=== PATIENT | male | born 1945 | race Hispanic/Latino ===

== ENCOUNTER → 2020-10-04 | Outpatient (CLI) | payer MEDICARE, OTHER | END | disposition home or self-care (01) | LOC: RAH 08:56 | PROVIDERS: ATTEND Internal Medicine Cardiovascular Disease | DX: I25.10 Atherosclerotic heart disease of native coronary artery without angina pectoris (principal); R94.39 Abnormal result of other cardiovascular function study | CPT/HCPCS: 78452; 93017; 96374; A9500 ×2 ==

== ENCOUNTER → 2024-05-29 | Outpatient (CLI) | payer MEDICARE ==
[~2024-05-29] MED LIST: AMOX1TAB16 PO; ASPI-1197 PO; CARV3.1262 PO; EMPA10TA PO; INSU100C14 SQ; INSU3INS3 SQ; METF-445 PO; SACU1TAB PO; SIMV-43 PO; SPIR25TA6 PO; TORS20TA4 PO
[2024-05-29 12:22] LABS: CREATININE 1.4 mg/dL (0.5-1.3); MAGNESIUM 2.3 mg/dL (1.80-2.40); POTASSIUM 4.7 mmol/L (3.5-5.1)
== END | disposition home or self-care (01) ==
LOC: LAB 10:00
PROVIDERS: ATTEND Internal Medicine Cardiovascular Disease
DX: I50.22 Chronic systolic (congestive) heart failure (principal); I25.5 Ischemic cardiomyopathy
CPT/HCPCS: 36415; 80048; 83735; 83880

== ENCOUNTER 2024-06-27 11:09 | Day surgery (SDC) | payer MEDICARE ==
--- NOTE | 2024-06-23 11:18 | EKG ---
[facility] Test Date: 2024-06-23 Test Time: 12:08:07 Pat Name: KARIN LEE Department: [facility] Room: Gender: M Hall Supervisor: [id number] : 1945 Requested By: LE WHEELER Order Number: [id number] Reading MD: Janneth George Measurements Intervals [place] Rate: 106 P: 1 UT: 179 QRS: 86 QRSD: 147 T: 20 QT: 379 QTc: 503 Interpretive Statements Sinus tachycardia Probable left atrial enlargement Left ventricular hypertrophy Compared to ECG 05/18/2024 12:38:15 Left ventricular hypertrophy now present Left bundle-branch block no longer present Intraventricular conduction delay no longer present ST (T wave) deviation no longer present Electronically Signed On 06-23-2024 13:34:00 WEDDING COORDINATOR by Janneth George Please click the below link to view image of tracing.
[2024-06-23 11:19] VITALS: BP 107/74; PULSE 105; RESP 18; TEMP 97.2
[2024-06-23 11:33] LABS: INR 1.06 (0.85-1.15); PROTHROMBIN TIME 11.4 SEC (9.6-11.6)
[2024-06-23 11:38] LABS: ADD UA MICROSCOPIC YES; APPEARANCE,URINE CLEAR (CLEAR); BILIRUBIN,URINE NEGATIVE (NEGATIVE); COLOR,URINE YELLOW (YELLOW); GLUCOSE, URINE (UA) >=1000 mg/dL (NEGATIVE); KETONES,URINE NEGATIVE (NEGATIVE); LEUKOCYTE ESTERASE ,URINE NEGATIVE Leu/uL (NEGATIVE); NITRATE,URINE NEGATIVE (NEGATIVE); OCCULT BLOOD,URINE NEGATIVE (NEGATIVE); PROTEIN,URINE 30 mg/dL (NEGATIVE); UROBILINOGEN,URINE 0.2 mg/dL (0.2-1.0)
[2024-06-23 11:43] LABS: CREATININE 1.1 mg/dL (0.5-1.3); POTASSIUM 4.5 mmol/L (3.5-5.1)
[2024-06-23 11:48] LABS: BASOPHILS # (AUTO) 0.05 K/uL (0.00-0.20); BASOPHILS % (AUTO) 0.5 % (0.0-5.0); EOSINOPHILS # (AUTO) 0.15 K/uL (0.00-0.70); EOSINOPHILS % (AUTO) 1.6 % (0.0-8.0); HEMATOCRIT 44.2 % (42-54); IMMATURE GRANULOCYTE ABSOLUTE 0.01 K/uL (0-1); LYMPHOCYTES # (AUTO) 2.5 K/uL (1.0-4.8); LYMPHOCYTES % (AUTO) 26.6 % (21.0-51.0); MEAN CORPUSCULAR HEMOGLOBIN 30.7 pg (27.0-33.0); MEAN CORPUSCULAR HGB CONC 31.9 g/dL (32.0-36.0); MEAN CORPUSCULAR VOLUME 96.3 fL (79-99); MONOCYTES # (AUTO) 0.7 K/uL (0.1-1.0); MONOCYTES % (AUTO) 7.8 % (3.0-13.0); NEUTROPHILS # (AUTO) 5.9 K/uL (1.8-7.7); NEUTROPHILS % (AUTO) 63.4 % (40.0-77.0); PLATELET COUNT (AUTO) 189 K/uL (130-400); RED BLOOD CELL COUNT(AUTO) 4.59 MIL/uL (4.50-6.20); RED CELL DISTRIBUTION WIDTH 14.2 % (11.0-15.5); WHITE BLOOD COUNT (AUTO) 9.3 K/uL (4.8-10.8)
--- NOTE | 2024-06-23 12:07 | HMCIMG ---
CHEST 1VW REASON: PRE OP COMPARISON: None. FINDINGS: Single view of the chest was obtained. Lungs are clear. Mild cardiomegaly, unchanged. There is no pulmonary vascular congestion. Mediastinum and bony thorax appear unremarkable. IMPRESSION: 1. Mild cardiomegaly, unchanged, no acute finding.
[2024-06-23 12:20] LABS: B-TYPE NATRIURETIC PEPTIDE 2070 pg/mL (0-100)
[2024-06-23 12:40] LABS: BACTERIA,URINE RARE /HPF (None Seen); MUCUS,URINE RARE LPF (None Seen); RBC,URINE 0-1 /HPF (0-1); SQUAMOUS EPITHELIAL CELL,UR RARE /HPF (0-2); WBC,URINE 0-1 /HPF (0-1)
--- NOTE | 2024-06-26 15:14 | NUR ---
RE: LABS REPORTED BNP 2069 TO FILIBERTO RAMOS NP AND THAT PATIENT REPORTED HAVING A COUGH. PER FILIBERTO, REASSESS PATIENT IN AM IF HE IS NOT ABLE TO LAY FLATOR HAS SOB THEN NOTIFY DR WHEELER.
[~2024-06-27] VITALS: Ht 177.8 cm; Wt 88.5 kg
[2024-06-27] VITALS (8 sets, daily range): BP systolic 110–116; BP diastolic 72–85; PULSE 92–112; RESP 16–19; TEMP 97.3–98
[~2024-06-27 11:09] MED LIST changes: -AMOX1TAB16 PO; -ASPI-1197 PO; -CARV3.1262 PO; +CARV6.25 PO
--- NOTE | 2024-06-27 12:13 | NUR ---
Reported SOBUE, yellow phlegm and wheezes to right lung field to Dr. Dietz in mushroom laborer. 2V CXR completed. Sats 98% ora.
--- NOTE | 2024-06-27 12:44 | HMCIMG ---
CHEST 2VWS HISTORY: Preop COMPARISON: 06/23/2024 FINDINGS: Frontal and lateral projections of the chest were obtained. There is no acute pulmonary infiltrates or failure. The heart is borderline enlarged. Artery calcifications are seen. Prominent interstitial markings are seen Degenerative changes are seen of the thoracolumbar spine. IMPRESSION: 1. No acute pulmonary infiltrates.
[2024-06-27] MEDS ORDERED: BIVALIRUDIN 250 MG/VIAL IV ONE (14:58)
[2024-06-27] MEDS ORDERED: LIDOCAINE HCL 400MG/20ML VIAL ONE (14:58)
[2024-06-27] MEDS ORDERED: IOHEXOL 350 MG/ML 100ML INFUS..BTL IV ONE ×2 (14:59→15:06)
[2024-06-27] MEDS ORDERED: HEParin-NS 1,000 UNIT/500 ML 1,000 ML IV ONE (14:59)
[2024-06-27] MEDS ORDERED: HEParin 10,000 UNIT/10ML (1,000 UNIT/ML) VIAL ONE (14:59)
[2024-06-27] MEDS ORDERED: NITROGLYCERIN 50MG VIAL ONE (14:59)
[2024-06-27] MEDS ORDERED: IOHEXOL-350 50ML VIAL IV ONE (14:59)
[2024-06-27] MEDS ORDERED: FENTanyl CITRate PF 50 MCG/1 ML 2ML VIAL ONE (15:19)
[2024-06-27] MEDS ORDERED: MIDAZOLAM HCL 1 MG/ML 2ML VIAL ONE (15:19)
[2024-06-27] MEDS ORDERED: INSULIN humuLIN R 100 UNIT/ML 3ML SQ SCH (16:30)
[2024-06-27] MEDS ORDERED: DEXTROSE 50%-WATER 50 ML DISP.SYRIN IV PRN (16:30)
[2024-06-27] MEDS ORDERED: GLUCAGON 1MG KIT 1 MG ML IM PRN (16:30)
--- NOTE | 2024-06-27 16:35 | PRN ---
DATE OF PROCEDURE: 06/27/2024 PROCEDURE PERFORMED: RIGHT AND LEFT HEART CATHETERIZATION, LEFT VENTRICULOGRAM, LEFT AND RIGHT SELECTIVE CORONARY ANGIOGRAM SPEECH PATHOLOGIST ASSISTANT: INDICATION: PROCEDURE NOTE: After informed consent was obtained the patient was prepped and draped in the usual sterile fashion. A 7 F venous sheath with hemostatic valve was inserted into the right common femoral vein with micropuncture technique and ultrasound guidance. A 6 Algerian arterial sheath was inserted in the right femoral artery using micropuncture technique and ultrasound guidance with a front wall 1st pass puncture as well. This was performed after fluoroscopic identification of bony landmarks to facilitate a more accurate puncture of the right common femoral artery. The arterial and venous sheaths were aspirated and flushed. A 7 Algerian S tip Dallas-Ray catheter was then advanced using balloon floatation to the right heart with pressure measurements in the RA, RV, PA, and pulmonary capillary wedge positions. Cardiac output determinations were made. A 6 Algerian pigtail catheter was then advanced over a J-tipped guidewire to the ascending aorta and was prolapsed into the left ventricle. The catheter was aspirated and flushed and pressure measurements were obtained. Simultaneous pressure measurements of LVEDP and wedge pressure were obtained. A left ventriculogram was then performed in a 30 BANSAL projection. A pullback procedure was then performed, and this catheter was removed over a J-tipped guidewire. A 6F JL-4 was then advanced to the ascending aorta over a J-tipped guidewire, was aspirated and flushed, and was used for selective left coronary angiograms in multiple obliquities. A JR-4 was advanced in a similar fashion to the ascending aorta over a J-tipped guidewire and was used for selective right coronary angiograms in multiple obliquities with findings as outlined below. A right common femoral angiogram was performed to assess suitability for Perclose suture closure and the Perclose device was deployed in standard fashion. Perclose suture closure was successful without bleeding or hematoma. The patient tolerated the procedure well and was returned to the holding area in stable condition. FINDINGS: RIGHT HEART CATHETERIZATION: RA pressure was 18 mm of mercury on the A-wave, 14 mm of mercury on the V-wave, and mean RA pressure was 12 mm of mercury. RV pressure was 53/14 mm of mercury PA pressure was 53/20 mm of mercury with a mean PA pressure of 38 mm of mercury. Pulmonary capillary wedge pressure was 20 mm of mercury on the A-wave, 28 mm of mercury on the V-wave, and mean pulmonary capillary wedge pressure was 20 mm of mercury. Cardiac output was 3.65 liters/minute Cardiac index was 1.8 liters/minute per meter squared LEFT HEART HEMODYNAMICS: The patient's LVEDP was 17 mm of mercury prior to LV-gram in 19 mm of mercury after LV-gram. There was no aortic valve gradient on pullback. LEFT VENTRICULOGRAM: A left ventriculogram in a 30 degree BANSAL projection demonstrated severe global hypokinesis with an LVEF estimate of less than 20%. 2+ to 3+ mitral regurgitation. CORONARY ANGIOGRAM: LEFT MAIN: The left main was normal. LEFT ANTERIOR DESCENDING: The LAD had a 20% mid stenosis and a 20% stenosis in the mid to distal LAD. The diagonal branches were normal. LEFT CIRCUMFLEX: The left circumflex had a 20% mid stenosis prior to a large bifurcating posterolateral branch. RAMUS INTERMEDIATE BRANCH: There was a tiny normal ramus intermediate branch. RIGHT CORONARY ARTERY: The right coronary artery had a 20% mid stenosis and was otherwise normal. The PDA and posterolateral branches were normal. IMPRESSION: Nonischemic cardiomyopathy with LVEF of less than 20%. Low cardiac output state with cardiac index of 1.8 liters/min/m. Two to 3+ mitral regurgitation with large V-waves to 28 mm of mercury. Minor nonobstructive coronary artery disease with 20% mid and distal LAD stenoses, 20% mid left circumflex stenosis, and 20% mid RCA stenosis with otherwise normal coronaries. Pulmonary capillary wedge pressure of 20 mm of mercury consistent with adequate diuresis. RECOMMENDATION: Continue guideline directed medical therapy. COMPLICATIONS OF PROCEDURE: None, the patient tolerated the procedure well and was returned to his room in stable condition. HEMOSTASIS: Perclose suture closure was successful without bleeding or hematoma. ESTIMATED BLOOD LOSS: Less than 10 mL. CONTRAST TOTAL: 115 mL. LE WHEELER MD Jun 27, 2024 16:35
--- NOTE | 2024-06-27 18:54 | NUR ---
Full and complete discharge instructions given both verbally and in writing to Patient and . Instructed on Femoral precautions post Heart Catheterization. Site remains soft, with dressing clean and dry. No sign of bleeding, bruising or hematoma evident. Pedal pulses intact to BLE's. Pt denies c/o pain or sob. All questions answered. PIV removed with catheter tip intact. W/C to pov with Daughter.
== END 2024-06-27 19:26 | disposition home or self-care (01) ==
LOC: DAH 11:09
PROVIDERS: ATTEND Internal Medicine Cardiovascular Disease
DX: R94.39 Abnormal result of other cardiovascular function study (principal); I25.10 Atherosclerotic heart disease of native coronary artery without angina pectoris; I42.8 Other cardiomyopathies; I34.0 Nonrheumatic mitral (valve) insufficiency; I11.0 Hypertensive heart disease with heart failure; I50.9 Heart failure, unspecified; E11.9 Type 2 diabetes mellitus without complications; E78.5 Hyperlipidemia, unspecified; Z98.890 Other specified postprocedural states; Z87.891 Personal history of nicotine dependence; Z90.49 Acquired absence of other specified parts of digestive tract; Z98.49 Cataract extraction status, unspecified eye; Z83.3 Family history of diabetes mellitus; Z79.4 Long term (current) use of insulin; Z79.899 Other long term (current) drug therapy
CPT/HCPCS: 80048; 83880; 85025; 85610; 85730; 81001; 36415; 71045; 93005; 93460; 82948; 71046; C1894 ×3; C1769 ×2; C1760; Q9965; J3010; J3490 ×2; J2250; J1644; Q9967 ×2; A4215; A4222; A4221; A4663; A4216; A4606; A4223 ×3; 99156; 99157; J0583

== ENCOUNTER 2024-06-28 08:02 | Observation (INO) | payer MEDICARE ==
[~2024-06-28] VITALS: Ht 177.8 cm; Wt 87.5 kg
--- NOTE | 2024-06-28 08:23 | EKG ---
[facility] Test Date: 2024-06-28 Test Time: 08:08:04 Pat Name: KARIN LEE Department: [facility] Room: ED Gender: M Coo: [id number] : 1945 Requested By: BRETO DE Order Number: [id number] Reading MD: Hans Junior Measurements Intervals [place] Rate: 97 P: 48 [place]: 193 QRS: -79 QRSD: 148 T: 74 QT: 408 QTc: 520 Interpretive Statements Sinus rhythm Left bundle branch block Compared to ECG 06/23/2024 12:08:07 Left bundle-branch block now present Sinus tachycardia no longer present Left ventricular hypertrophy no longer present Electronically Signed On 06-28-2024 17:04:51 OWNER ORAL SURGEON by Hans Junior Please click the below link to view image of tracing.
[2024-06-28] MEDS: ASPIRIN 325MG TAB PO ONE (08:36)
--- NOTE | 2024-06-28 08:36 | ERN ---
ED Note History of Present Illness Stated Complaint: JONO QUEEN S/P HEART CATH Chief Complaint: Chest Pain Time Seen by : 08:28 Dictation: Patient is a 78-year-old male with a past medical history of congestive heart failure, diabetes type 2, hypertension, and hyperlipidemia who presents to the ED for shortness of breath. Patient was recently hospitalized a month ago for acute exacerbation of CHF and pneumonia but has since felt better started on new management for his CHF. Patient states he had a heart catheterization done yesterday and there was no blockage found. Patient denies any dizziness, headaches, or numbness and tingling. He does admit to some lightheadedness when getting up this morning. He has some discomfort at the site of CAD insertion on the right leg. Patient states he takes a baby aspirin occasionally but did not take one this morning. LVEF in May 2024 was <20%. Allergies: Coded Allergies: No Known Allergies (Verified Allergy, Unknown, 06/16/18) Home Meds Active Scripts Sacubitril/Valsartan (Entresto 24 mg-26 mg Tablet) 24 Mg-26 Mg Tablet, 0.5 TAB PO BID for 30 Days, #60 TAB 0 Refills Hold dose if Systolic blood pressure less than 90 Prov:SOTERO RAMOS SHEAR SCRAPMAN 05/26/24 Spironolactone (Spironolactone) 25 Mg Tablet, 1 TAB PO DAILY for 30 Days, #30 TAB 0 Refills Prov:LE WHEELER MD 05/25/24 Empagliflozin (Jardiance) 10 Mg Tablet, 1 TAB PO DAILY for 30 Days, #30 TAB 0 Refills Prov:LE WHEELER MD 05/25/24 Torsemide (Torsemide) 20 Mg Tablet, 1 TAB PO DAILY for 30 Days, #30 TAB 0 Refills Prov:LE WHEELER MD 05/25/24 Reported Medications Carvedilol (Carvedilol) 6.25 Mg Tablet, 6.25 MG PO BID, TAB 06/23/24 Insulin Glargine,Hum.rec.anlog (Lantus Solostar) 100 Unit/Ml (3 Ml) Insuln.pen, 45 UNIT SQ HS for 30 Days, #15 ML 0 Refills 05/18/24 Insulin Lispro (Humalog) 100 Unit/Ml Cartridge, 15 UNITS SQ ACHS, CARTRIDGE 05/18/24 Metformin HCl (Metformin HCl) 850 Mg Tablet, 1 TAB PO BID for 30 Days, #60 TAB 0 Refills 05/18/24 Simvastatin (Simvastatin) 20 Mg Tablet, 20 MG PO HS, TAB 05/18/24 Discontinued Scripts Aspirin (Aspirin) 81 Mg Tab.chew, 1 TAB PO DAILY for 30 Days, #90 TAB 0 Refills Prov:SOTERO RAMOS SHEAR SCRAPMAN 05/26/24 Amoxicillin/Potassium Clav (Amox Tr-K Clv 875-125 mg Tab) 875 Mg-125 Mg Tablet, 1 TAB PO BID for 10 Days, #20 TAB 0 Refills Prov:NEYDA CASTILLO SECURITY OPERATIONS ENGINEER 05/26/24 Carvedilol (Coreg) 3.125 Mg Tablet, 3.125 MG PO BID, #30 TAB Prov:LE WHEELER MD 05/25/24 Past Medical History Past Medical History: CAD, CHF, Diabetes-Type II, High Cholesterol, Hypertension Surgical History: Other Review of System Dictation Constitutional-no chills, weight loss/gain, fever Eyes-no injury, pain, redness and discharge ENT-no injury, pain, swelling Cardiovascular no palpitations, edema. chest discomfort Respiratory no cough, wheezing. shortness of breath, worsened when lying down Abdomen/GI-no abdominal pain, diarrhea, constipation, vomiting, nausea Back no injury and pain Genitourinary no injury, bleeding and discharge Musculoskeletal/extremities no injury, deformity Skin no rash, discoloration Neuro-no headache, weakness, numbness, tingling, seizures, tremors Psych-no suicidal ideation, homicidal ideation, hallucinations, depression, anxiety, memory loss Initial Vital Sign VS Vital Signs Date Time Temp Pulse Resp B/P (MAP) Pulse Ox O2 Delivery O2 Flow Rate FiO2 06/28/24 08:02 98.2 99 20 101/65 100 Room Air 0 Physical Exam Dictation VITAL SIGNS: Reviewed. GENERAL APPEARANCE: Alert, oriented x3, no acute distress, obese. HEAD AND FACE: Non-traumatic. EYES: PERRL, pink conjunctivas, eyelid no trauma, anterior chamber clear. NOSE: No discharge, no bleeding. OROPHARYNX: Mouth normal, teeth no caries, tongue pink. Pharynx clear, no erythema. Tonsils no exudates, no abscesses noted. Mucous membrane moist. NECK: Supple, non-tender, no thyromegaly, no masses, no JVD, no bruits. BREAST: Deferred. CHEST: No tenderness, no crepitus, no paradoxical movement, no retractions. LUNGS: Clear, well-ventilated, symmetric, no rales, no rhonchi, no stridor, good breath sounds bilaterally. Wheezing on right HEART: Regular rate, regular rhythm, no murmur, no gallops. VASCULAR: No peripheral edema. ABDOMEN: Soft, positive bowel sounds, nondistended, no guarding, nontender, no rebound, no masses no hepatomegaly, no splenomegaly, no Pittman's sign, no hernias. RECTAL: Swelling, lesion, possible pilonidal cyst GENITAL: Deferred. NEUROLOGICAL: Normal speech, gross motor function intact, gross sensory function intact. MUSCULOSKELETAL: Neck nontender, full range of motion, back nontender, full range of motion. EXTREMITIES: Nontender, full range of motion. SKIN: Color pink, dry, no turgor, no rash, no lacerations, no abrasions, no contusions. LYMPHATICS: Deferred. Results (Laboratory/Radiology) Laboratory/Radiology Laboratory Tests Test 06/28/24 08:34 White Blood Count 8.0 K/uL (4.8-10.8) Red Blood Count 4.06 MIL/uL (4.50-6.20) L Hemoglobin 12.4 g/dL (14.0-18.0) L Hematocrit 38.4 % (42-54) L Mean Corpuscular Volume 94.6 fL (79-99) Mean Corpuscular Hemoglobin 30.5 pg (27.0-33.0) Mean Corpuscular Hemoglobin Concent 32.3 g/dL (32.0-36.0) Red Cell Distribution Width 14.3 % (11.0-15.5) Platelet Count 153 K/uL (130-400) Mean Platelet Volume 10.8 fL (7.5-10.5) H Immature Granulocyte % (Auto) 0.2 % (0-1) Neutrophils (%) (Auto) 63.1 % (40.0-77.0) Lymphocytes (%) (Auto) 24.4 % (21.0-51.0) Monocytes (%) (Auto) 10.3 % (3.0-13.0) Eosinophils (%) (Auto) 1.5 % (0.0-8.0) Basophils (%) (Auto) 0.5 % (0.0-5.0) Neutrophils # (Auto) 5.1 K/uL (1.8-7.7) Lymphocytes # (Auto) 2.0 K/uL (1.0-4.8) Monocytes # (Auto) 0.8 K/uL (0.1-1.0) Eosinophils # (Auto) 0.12 K/uL (0.00-0.70) Basophils # (Auto) 0.04 K/uL (0.00-0.20) Absolute Immature Granulocyte (auto 0.02 K/uL (0-1) Nucleated Red Blood Cells 0.0 % (0.0-0.19) Sodium Level 139 mmol/L (136-145) Potassium Level 4.4 mmol/L (3.5-5.1) Chloride Level 104 mmol/L (101-111) Carbon Dioxide Level 29 mmol/L (21-32) Blood Urea Nitrogen 32 mg/dL (7-18) H Creatinine 1.4 mg/dL (0.5-1.3) H Glomerular Filtration Rate Calc 52 mL/min (>90) Random Glucose 89 mg/dL (70-105) Total Calcium 8.4 mg/dL (8.5-10.1) L Troponin I High Sensitivity 48 ng/L (4-75) B-Type Natriuretic Peptide 2360 pg/mL (0-100) H Labs Reviewed?: Yes EKG Comment: EKG obtained 06/28/2024 at 08:08:04 Sinus rhythm Rate [address] elevation or depression X-RAY Comment: [place] [address] IMAGING REPORT Signed PATIENT: KARIN LEE MR#: [id number] : 1945 SEX: M AGE: 78 LOCATION: [facility] ORDER 0 STATUS: REG ER REPORT#: [id number] SERVICE 8 REASON: Shortness of breath ORDERING PHYSICIAN: BERTO DE MD PROCEDURE: CXR1VW - CHEST 1VW CHEST 1VW HISTORY: Shortness of breath COMPARISON: 06/27/2024 FINDINGS: A frontal projection of the chest was obtained. No acute pulmonary infiltrates is seen. The heart is enlarged. Degenerative changes are seen. Aortic calcifications are seen. IMPRESSION: 1. No acute pulmonary infiltrate is seen. DICTATED BY: PAULINA RUBIO MD DATE: 06/28/24913 ELECTRONICALLY SIGNED BY: PAULINA RUBIO MD DATE: 06/28/24917 ED Course ED Course Orders Procedure Category Date Status Time 12 Lead Ekg Tracing- EKG 06/28/24 Complete Technical 08:06 Aspirin 325mg Tab PHA 06/28/24 Complete (Aspirin 325mg Tab) 08:30 Cbc With Differential LAB 06/28/24 Complete 08:19 Basic Metabolic Panel LAB 06/28/24 Complete 08:19 B-Type Natriuretic LAB 06/28/24 Complete Peptide 08:19 Troponin I High LAB 06/28/24 Complete Sensitivity 08:19 Chest 1vw RAD 06/28/24 Resulted 08:19 Furosemide 40mg Vial PHA 06/28/24 Complete (Lasix 40mg Vial) 09:30 Vital Signs(Adult CPOE 06/28/24 Transmitted Hospitalist) 09:45 Nurse To Enter Home CPOE 06/28/24 Transmitted Medication 09:45 Admit Orders ADM 06/28/24 Transmitted 09:45 Edm Admit Bridge Order ADM 06/28/24 Transmitted 09:45 Current Medications Medications (Trade) Dose Ordered Sig/Stephanie Route PRN Reason Start Time Stop Time Status Last Admin Dose Admin Aspirin (Aspirin 325mg Tab) 325 mg ONCE ONCE PO 06/28/24 08:30 06/28/24 08:31 DC 06/28/24 08:36 Furosemide (LASix 40MG VIAL) 40 mg ONCE ONCE IV 06/28/24 09:30 06/28/24 09:31 DC Vital Signs Date Time Temp Pulse Resp B/P (MAP) Pulse Ox O2 Delivery O2 Flow Rate FiO2 06/28/24 08:02 98.2 99 20 101/65 100 Room Air 0 Medical Decision Making [facility] INITIAL IMPRESSION Initial history and physical concerning for acute on chronic systolic CHF exacerbation, shortness of breath, elevated BNP Contributing medical problems: History of CHF, hypertension, diabetes II I have reviewed the triage nursing notes and vital signs. Initial plan: Laboratory evaluation, chest x-ray, EKG, DATA REVIEW I have reviewed additional NN, repeat VS, and monitoring where indicated. Heart rate, blood pressure, and O2 saturation are acceptable. Walker diagnostic results: BNP 2360 ED COURSE Interventions: Lasix Reassessment: DISPOSITION Final diagnostic impression: shortness of breath due to acute on chronic exacerbation of CHF I discussed my findings, clinical impression and treatment recommendations with the patient. My final plan for disposition was made based upon -mild risk of complications and potential morbidity of the patient's condition. -Discussion with the patient regarding management options. Patient will be admitted for further evaluation of CHF DX & DISP Disposition: Inpatient Decision to Admit Date: Jun 28, 2024 Decision to Admit Time: 09:41 Departure Impression: Primary Impression: Acute on chronic systolic CHF (congestive heart failure) Additional Impressions: Shortness of breath, Elevated brain natriuretic peptide (BNP) level Condition: Stable Referrals: JARON BASHIR DO (PCP) I have reviewed I have reviewed the case I have examined patient BERTO DE MD Jun 28, 2024 08:36 JESSIE DONNELLY MD Jun 28, 2024 09:49
[2024-06-28 08:43] LABS: BASOPHILS # (AUTO) 0.04 K/uL (0.00-0.20); BASOPHILS % (AUTO) 0.5 % (0.0-5.0); EOSINOPHILS # (AUTO) 0.12 K/uL (0.00-0.70); EOSINOPHILS % (AUTO) 1.5 % (0.0-8.0); HEMATOCRIT 38.4 % (42-54); IMMATURE GRANULOCYTE ABSOLUTE 0.02 K/uL (0-1); LYMPHOCYTES % (AUTO) 24.4 % (21.0-51.0); MEAN CORPUSCULAR HEMOGLOBIN 30.5 pg (27.0-33.0); MEAN CORPUSCULAR HGB CONC 32.3 g/dL (32.0-36.0); MEAN CORPUSCULAR VOLUME 94.6 fL (79-99); MONOCYTES # (AUTO) 0.8 K/uL (0.1-1.0); MONOCYTES % (AUTO) 10.3 % (3.0-13.0); NEUTROPHILS # (AUTO) 5.1 K/uL (1.8-7.7); NEUTROPHILS % (AUTO) 63.1 % (40.0-77.0); PLATELET COUNT (AUTO) 153 K/uL (130-400); RED BLOOD CELL COUNT(AUTO) 4.06 MIL/uL (4.50-6.20); RED CELL DISTRIBUTION WIDTH 14.3 % (11.0-15.5)
[2024-06-28 08:51] LABS: CREATININE 1.4 mg/dL (0.5-1.3); POTASSIUM 4.4 mmol/L (3.5-5.1)
[2024-06-28 09:05] LABS: B-TYPE NATRIURETIC PEPTIDE 2360 pg/mL (0-100)
--- NOTE | 2024-06-28 09:18 | HMCIMG ---
CHEST 1VW HISTORY: Shortness of breath COMPARISON: 06/27/2024 FINDINGS: A frontal projection of the chest was obtained. No acute pulmonary infiltrates is seen. The heart is enlarged. Degenerative changes are seen. Aortic calcifications are seen. IMPRESSION: 1. No acute pulmonary infiltrate is seen.
[2024-06-28] MEDS ORDERED: PoTASSium chl 10% ELIXIR 20MEQ 20 MEQ/15 ML UDCUP PO PRN (10:00)
[2024-06-28] MEDS ORDERED: PoTASSium chloRIDE 20MEQ/100ML 100 ML IV PRN (10:00)
[2024-06-28] MEDS ORDERED: acetaMINOPHEN 500 MG TABLET PO PRN (10:00)
[2024-06-28] MEDS ORDERED: MAGNESIUM 2GM PREMIX 50ML 50 ML IV PRN (10:00)
[2024-06-28] MEDS ORDERED: PoTASSium chloRIDE 20MEQ ER 20 MEQ ERTAB PO PRN (10:00)
--- NOTE | 2024-06-28 10:05 | HP ---
[facility] HISTORY AND PHYSICAL Date of Service: Jun 28, 2024 Time of Service: 10:05 HISTORY OF PRESENT ILLNESS: Date of service: 06/28/2024 This is a 78-year-old male with past medical history of hypertension, diabetes mellitus type 2, hyperlipidemia, history of severe heart failure with EF of less than 20%, moderate mitral regurgitation who presented to the hospital secondary to shortness of breath. Patient states that since yesterday he noticed that he was feeling short of breath which is present at rest and with exertion. He had undergone a heart catheterization yesterday by Dr. Dietz which showed minor nonobstructive coronary artery disease with 20% mid and distal LAD stenosis, 20% mid left circumflex stenosis, 20% mid RCA stenosis. Patient also underwent right heart catheterization and is capillary wedge pressure was noted to be 20 mmHg he was recommended guideline directed medical therapy. He also complains of cough with sputum production. Denied any fever, chills, chest pain, abdominal pain, nausea, vomiting, falls. Labs were notable for white count of 8.0, hemoglobin was 12.4, platelet count was 153k, sodium was 139, potassium was 4.4, creatinine was 1.4 which is higher than his baseline yesterday. BNP was noted to be 2360, troponin was 48 Patient underwent ex chest x-ray which showed no acute infiltrates. REVIEW OF SYSTEMS CONSTITUTIONAL: Denies fevers, chills, or night sweats. No unintentional weight loss reported. NEUROLOGICAL: Denies headache, amaurosis fugax, motor weakness, sensory deficit, vertigo/spinning sensation, gait abnormalities, or tremors. ENT: No hearing loss, otalgia, otorrhea, rhinitis, rhinorrhea, hoarseness, or sore throat. CARDIOVASCULAR: Denies any exertional angina, dyspnea on exertion, orthopnea, paroxysmal nocturnal dyspnea, palpitations, life-threatening arrhythmias, claudication. PULMONARY: Positive for cough, shortness of breath, dyspnea on exertion. SLEEP: Denies morning headaches, daytime somnolence or napping. Denies difficulty falling asleep, staying asleep, waking from sleep. Denies knowledge of snoring. GASTROINTESTINAL: Denies any type of dysphagia to either liquids or solids. Denies nausea, vomiting, pyrosis, early satiety, abdominal pain, diarrhea, constipation, or changes in stool consistency or caliber. Denies coffee-ground emesis, hematemesis, hematochezia, or melanotic stools. GENITOURINARY: Denies frequency, urgency, nocturia, hematuria or incontinence (Storage/Irritative symptoms.) Low urinary stream, straining to void, urinary intermittency or hesitancy, splitting of the voiding stream, terminal dribbling. ENDOCRINOLOGIC: Denies polyuria, polydipsia, polyphagia or heat/cold intolerances. HEMATOLOGIC: Denies thrombophilia/previous clots, or coagulopathy/bleeding disorders. ONCOLOGIC: Denies personal history of malignancy. DERMATOLOGIC: Denies rashes or pruritus. PSYCHIATRIC: Denies any suicidal or homicidal ideation. Denies hallucinations. PAST MEDICAL HISTORY: Hypertension, hyperlipidemia, history of CHF with EF of less than 20%, moderate mitral regurgitation. PAST SURGICAL HISTORY: History of heart catheterization on 06/27/2024 PAST SOCIAL HISTORY: Former smoker. Quit long time ago. Denied any alcohol use. Denied any drug use FAMILY HISTORY: Father had CAD in his 50s. Coded Allergies: No Known Allergies (Verified Allergy, Unknown, 06/16/18) PHYSICAL EXAM GENERAL APPEARANCE: The patient is awake, alert, and oriented, in no acute cardiopulmonary distress. NEUROLOGICAL: Cranial nerves II-XII grossly intact. Motor is 5/5 in bilateral upper and lower extremities proximal to distal. No sensory deficits. HEENT: Face is symmetric. Pupils are equal and reactive. Extraocular movements are intact. NECK: Supple. No JVD. No thyromegaly. No submental, submandibular, pre- /postauricular, occipital or supraclavicular lymphadenopathy. CHEST: Normal chest expansion. No Telemetry. LUNGS: Absence of any rales, rhonchi or any wheezing. CARDIOVASCULAR: Regular. S1 and S2 normal. No appreciable rubs, murmurs or gallops. ABDOMEN: Soft, nontender, and nondistended. There is no rebound, voluntary guarding, or rigidity. : Deferred. No Simons. EXTREMITIES: 1+ pitting edema in the lower extremity and not cyanotic. No clubbing. Good capillary refill. Pedal pulses are present. No groin hematoma noted. SKIN: No skin breakdown. Vital Sign (Last 24 Hours) 06/28/24 08:02 Temp 98.2 Pulse 99 Resp 20 B/P (MAP) 101/65 Pulse Ox 100 O2 Delivery Room Air O2 Flow Rate 0 LABS: Laboratory: Test 06/28/24 08:34 Range/Units White Blood Count 8.0 4.8-10.8 K/uL Red Blood Count 4.06 L 4.50-6.20 MIL/uL Hemoglobin 12.4 L 14.0-18.0 g/dL Hematocrit 38.4 L 42-54 % Mean Corpuscular Volume 94.6 79-99 fL Mean Corpuscular Hemoglobin 30.5 27.0-33.0 pg Mean Corpuscular Hemoglobin Concent 32.3 32.0-36.0 g/dL Red Cell Distribution Width 14.3 11.0-15.5 % Platelet Count 153 130-400 K/uL Mean Platelet Volume 10.8 H 7.5-10.5 fL Immature Granulocyte % (Auto) 0.2 0-1 % Neutrophils (%) (Auto) 63.1 40.0-77.0 % Lymphocytes (%) (Auto) 24.4 21.0-51.0 % Monocytes (%) (Auto) 10.3 3.0-13.0 % Eosinophils (%) (Auto) 1.5 0.0-8.0 % Basophils (%) (Auto) 0.5 0.0-5.0 % Neutrophils # (Auto) 5.1 1.8-7.7 K/uL Lymphocytes # (Auto) 2.0 1.0-4.8 K/uL Monocytes # (Auto) 0.8 0.1-1.0 K/uL Eosinophils # (Auto) 0.12 0.00-0.70 K/uL Basophils # (Auto) 0.04 0.00-0.20 K/uL Absolute Immature Granulocyte (auto 0.02 0-1 K/uL Nucleated Red Blood Cells 0.0 0.0-0.19 % Sodium Level 139 136-145 mmol/L Potassium Level 4.4 3.5-5.1 mmol/L Chloride Level 104 101-111 mmol/L Carbon Dioxide Level 29 21-32 mmol/L Blood Urea Nitrogen 32 H 7-18 mg/dL Creatinine 1.4 H 0.5-1.3 mg/dL Glomerular Filtration Rate Calc 52 >90 mL/min Random Glucose 89 70-105 mg/dL Total Calcium 8.4 L 8.5-10.1 mg/dL Troponin I High Sensitivity 48 4-75 ng/L B-Type Natriuretic Peptide 2360 H 0-100 pg/mL DIAGNOSTICS / RADIOLOGY: Chest x-ray was reviewed ASSESSMENT: Acute on chronic heart failure with systolic and diastolic dysfunction with EF of less than 20% nonischemic cardiomyopathy Right lower extremity pain POA Acute kidney injury POA prerenal versus cardiorenal Hypertension Hyperlipidemia Diabetes mellitus type 2 PLAN: - patient to be admitted to [facility] -in reference to heart failure. Patient will be started on Lasix 40 mg IV b.i.d.. We will also check a urine sodium, urine creatinine. Closely monitor blood pressure. Patient's blood pressure was currently on the softer side. Patient's home medications will be obtained which will be reconciled once available -keep potassium greater than four and magnesium greater than two. - Monitor for fevers. If febrile will start antibiotics. Pt is afebrile with no leukocytosis. -obtain a arterial Doppler of the lower extremity in a venous Doppler. No evidence of groin hematoma pseudoaneurysm on physical examination -we will request consultation with Cardiology -further orders per hospitalization course. Advanced Care Planning Which of the following were discussed: Hospice care: Yes __ No _x_ Therapeutic options: Yes __ No __ Advance directives: Yes __ No __ Other discussions: Pt is full code Discussed with who?: patient (Patient, family or surrogates) Voluntary nature of this service was explained to the patient? Yes _x_ No __ Amount of time spent: 25 minutes RAUL Dela Cruz MD, MD Jun 28, 2024 10:05
[2024-06-28] MEDS: furoSEMIDE 40MG VIAL IV ONE (10:22)
[2024-06-28 10:26] LABS: HEMOGLOBIN A1C 8.2 % (4.0-6.0)
[2024-06-28 10:33] LABS: THYROID STIMULATING HORMONE 2.66 uIU/mL (0.36-3.74)
[2024-06-28 11:01] LABS: ADD UA MICROSCOPIC YES; APPEARANCE,URINE CLEAR (CLEAR); BILIRUBIN,URINE NEGATIVE (NEGATIVE); COLOR,URINE COLORLESS (YELLOW); GLUCOSE, URINE (UA) 300 mg/dL (NEGATIVE); KETONES,URINE NEGATIVE (NEGATIVE); LEUKOCYTE ESTERASE ,URINE NEGATIVE Leu/uL (NEGATIVE); NITRATE,URINE NEGATIVE (NEGATIVE); OCCULT BLOOD,URINE NEGATIVE (NEGATIVE); PROTEIN,URINE NEGATIVE (NEGATIVE); UROBILINOGEN,URINE 0.2 mg/dL (0.2-1.0)
[2024-06-28 11:02] LABS: CREATININE,URINE RANDOM 19.54 mg/dL (30-135)
[2024-06-28 11:03] LABS: MUCUS,URINE RARE LPF (None Seen); WBC,URINE 0-1 /HPF (0-1)
[2024-06-28 11:11] LABS: SARS-CoV-2, RNA, NAAT NEGATIVE SARS CoV-2 (NEGATIVE)
[2024-06-28 11:13] LABS: INFLUENZA TYPE A Negative For Type A (NEGATIVE); INFLUENZA TYPE B Negative For Type B (NEGATIVE)
[2024-06-28] MEDS: INSULIN humuLIN R 100 UNIT/ML 3ML SQ SCH (11:30)
--- NOTE | 2024-06-28 12:16 | CONS ---
[facility] CARDIOLOGY CONSULTATION REPORT Cardiology consultation note dictated for Danny Kathleen MD Primary irrigation teacher: Sherif Dietz MD Date Patient Seen: Jun 28, 2024 Requesting Physician: Adore Singh MD Reason for Consultation: CHF exacerbation History of Present Illness: This is a 78-year-old Latin-Stateless male with a past medical history of hypertension, hyperlipidemia, type 2 diabetes mellitus, abnormal treadmill Cardiolite stress test on 04/05/2023 which demonstrated a fixed inferior and septal defect and a gated EF of 49% with associated mild inferobasal hypokinesis, new onset CHF with recent admission to [facility] [place] on 05/18/24, and 2D Echo on 05/19/2024 with an EF of <20%, moderate mitral valve regurgitation, and a global pattern of hypokinesis with paradoxic septal motion. Yesterday on 06/27/2024, the patient underwent a right and left heart catheterization with impression findings of nonischemic cardiomyopathy with a LVEF of <20%, low cardiac output state with cardiac index of 1.8 liters/min/m, 2-3+ mitral regurgitation with large V-waves to 28mmHg, minor nonobstructive coronary artery disease with 20% mid and distal LAD stenoses, 20% mid left circumflex stenosis, and 20% mid RCA stenosis with otherwise normal coronaries. Pulmonary capillary wedge pressure of 20mmHg consistent with adequate diuresis. With plan to continue guideline directed medical therapy. Last night at approximately 11:00 p.m., the patient began experience shortness of breath with wheezing and a productive cough. He also became concerned when he began to feel discomfort to his anterior ankle down to his dorsal foot with flexion and extension which prompted him to seek medical assistance. He admits that this weekend, he had nasal and chest congestion which prompted him to check himself for COVID three times, but came back negative. He currently denies chest pain, chest pressure, dizziness, nausea, or vomiting. He received Lasix 40 mg IV and states he is no longer winded with talking. Right groin with 4 x 4 and op-site in place, no hematoma noted, area is soft to touch. Past Medical History: As per HPI and summarized below Past Surgical History: Cholecystectomy Cataract surgery Family History: The patient's father was diagnosed with diabetes mellitus type 2. Social History: The patient lives with family. Habits: The patient denies alcohol, tobacco, or illicit drug use. Home Meds: Spironolactone 25 mg daily, torsemide 20 mg daily, carvedilol 6.25 twice daily, Jardiance 10 mg daily, Entresto 24/26 mg 1/2 tablet twice daily, simvastatin 20 mg daily, metformin 850 twice daily, Lantus insulin and Humalog or NovoLog insulin. Current Meds: Current Medications Medications Dose Ordered Sig/[facility] Start Time Stop Time Status Last Admin Enoxaparin Sodium 30 mg DAILY 06/29/24 09:00 07/29/24 08:59 Famotidine 20 mg Q24H 06/28/24 21:00 07/28/24 20:59 Furosemide 40 mg Q12H 06/28/24 16:00 07/28/24 15:59 Acetaminophen 500 mg Q6H PRN 06/28/24 10:00 07/28/24 09:59 Potassium Chloride 100 ml @ 100 mls/hr AD PRN 06/28/24 10:00 07/28/24 09:59 Potassium Chloride 20 meq AD PRN 06/28/24 10:00 07/28/24 09:59 Potassium Chloride 20 meq AD PRN 06/28/24 10:00 07/28/24 09:59 Magnesium Sulfate 50 ml @ 0 mls/hr PROTOCOL PRN 06/28/24 10:00 07/28/24 09:59 Guaifenesin/ Dextromethorphan 5 ml Q6H PRN 06/28/24 10:30 07/28/24 10:29 Insulin Human Regular INSULIN SLIDING SCAL... ACHS 06/28/24 11:30 07/28/24 11:29 Simvastatin 20 mg HS 06/28/24 21:00 07/28/24 20:59 Spironolactone 25 mg DAILY 06/29/24 09:00 07/29/24 08:59 Sacubitril/ Valsartan 1 each BID 06/28/24 21:00 07/28/24 20:59 Review of Systems: CONST: No fever, fatigue, or weight changes. EYES: No recent vision problems. ENT: No congestion, ear pain, or sore throat. C/V: No chest pain, palpitations, or edema. RESP: No cough, congestion, wheezing or shortness of breath. GI: No abdominal pain, nausea, vomiting, constipation, or diarrhea. : No incontinence or dysuria. SKIN: No rash. Admits to dressing to right groin. NEURO: No headache, focal numbness or weakness, dizziness, or seizures. PSYCH: No depression or anxiety. HEME: No abnormal bruising or bleeding. LYMPH: No swollen glands. MS: Admits to distal right lower extremity discomfort with flexion and extension Physical Examination: GENERAL: No acute distress. HEAD: Normal with no signs of head trauma. EYES: PERRLA, EOMI, conjunctiva and sclera normal. ENT: Hearing grossly intact, normal oropharynx. NECK: There is lymphadenopathy, or masses. No thyromegaly. Normal carotid upstr okes without bruits. JVD noted. LUNGS: Crackles to bases with expiratory wheezing. HEART: Normal rate and rhythm. 2/6 holosystolic murmur to the apex VASC: Bilateral DP pulses 2+. ABD: Bowel sounds normal, soft, nontender, no masses, no organomegaly. No audible bruits. : Not examined LYMPH: No lymphadenopathy noted. EXT: No clubbing, cyanosis or edema. SKIN: No rashes or lesions noted. Right groin with dressing in place, no hematoma noted, area is soft to touch. NEURO: Awake, alert, and oriented x3. No focal sensory or strength deficits noted. Vital Signs (last 8hr) Date Time Temp Pulse Resp B/P (MAP) Pulse Ox O2 Delivery O2 Flow Rate FiO2 06/28/24 10:23 85 16 102/65 99 Room Air* 0 21 06/28/24 08:02 98.2 99 20 101/65 100 Room Air 0 Laboratory: Hematology Labs: Test 06/28/24 08:34 Range/Units White Blood Count 8.0 4.8-10.8 K/uL Red Blood Count 4.06 L 4.50-6.20 MIL/uL Hemoglobin 12.4 L 14.0-18.0 g/dL Hematocrit 38.4 L 42-54 % Mean Corpuscular Volume 94.6 79-99 fL Mean Corpuscular Hemoglobin 30.5 27.0-33.0 pg Mean Corpuscular Hemoglobin Concent 32.3 32.0-36.0 g/dL Red Cell Distribution Width 14.3 11.0-15.5 % Platelet Count 153 130-400 K/uL Mean Platelet Volume 10.8 H 7.5-10.5 fL Immature Granulocyte % (Auto) 0.2 0-1 % Neutrophils (%) (Auto) 63.1 40.0-77.0 % Lymphocytes (%) (Auto) 24.4 21.0-51.0 % Monocytes (%) (Auto) 10.3 3.0-13.0 % Eosinophils (%) (Auto) 1.5 0.0-8.0 % Basophils (%) (Auto) 0.5 0.0-5.0 % Neutrophils # (Auto) 5.1 1.8-7.7 K/uL Lymphocytes # (Auto) 2.0 1.0-4.8 K/uL Monocytes # (Auto) 0.8 0.1-1.0 K/uL Eosinophils # (Auto) 0.12 0.00-0.70 K/uL Basophils # (Auto) 0.04 0.00-0.20 K/uL Absolute Immature Granulocyte (auto 0.02 0-1 K/uL Nucleated Red Blood Cells 0.0 0.0-0.19 % Chemistry Labs: Test 06/28/24 11:54 06/28/24 08:34 Range/Units Whole Blood Glucose 78 70-110 MG/DL Sodium Level 139 136-145 mmol/L Potassium Level 4.4 3.5-5.1 mmol/L Chloride Level 104 101-111 mmol/L Carbon Dioxide Level 29 21-32 mmol/L Blood Urea Nitrogen 32 H 7-18 mg/dL Creatinine 1.4 H 0.5-1.3 mg/dL Glomerular Filtration Rate Calc 52 >90 mL/min Random Glucose 89 70-105 mg/dL Hemoglobin A1c 8.2 H 4.0-6.0 % Estimated Average Glucose (eAG) 189 H 70-126 mg/dL Total Calcium 8.4 L 8.5-10.1 mg/dL Troponin I High Sensitivity 48 4-75 ng/L C-Reactive Protein, Quantitative 56.20 H 0.5-3.0 mg/L B-Type Natriuretic Peptide 2360 H 0-100 pg/mL Procalcitonin < 0.05 L 0.05-0.5 ng/mL Thyroid Stimulating Hormone (TSH) 2.66 0.36-3.74 uIU/mL Diagnostics / Radiology: Impression and Plan: Acute on chronic systolic heart failure New onset CHF with recent admission to [facility] [place] on 05/18/24 2D Echo on 05/19/2024 with an EF of <20%, moderate mitral valve regurgitation, and a global pattern of hypokinesis with paradoxic septal motion Hypertension Hyperlipidemia Type 2 diabetes mellitus Abnormal treadmill Cardiolite stress test on 04/05/2023 which demonstrated a fixed inferior and septal defect and a gated EF of 49% with associated mild inferobasal hypokinesis Right and left heart catheterization on 06/27/2024 with impression findings of nonischemic cardiomyopathy with a LVEF of <20%, low cardiac output state with cardiac index of 1.8 liters/min/m, 2-3+ mitral regurgitation with large V-waves to 28mmHg, minor nonobstructive coronary artery disease with 20% mid and distal LAD stenoses, 20% mid left circumflex stenosis, and 20% mid RCA stenosis with otherwise normal coronaries. Pulmonary capillary wedge pressure of 20mmHg c onsistent with adequate diuresis. With plan to continue guideline directed medical therapy. Acute on chronic systolic heart failure 2D Echo on 05/19/2024 with an EF of <20%, moderate mitral valve regurgitation, and a global pattern of hypokinesis with paradoxic septal motion BNP 2360 Chest x-ray on the with cardiomegaly -Continue Lasix 40mg IV q 12 hours, Spironolactone 25 mg daily, Entresto 24/26 mg 1/2 tablet twice daily, Carvedilol 6.25 twice daily, and Jardiance 10 mg daily -BMP and Mg in AM ATTESTATION BY PHYSICIAN I have seen and examined the patient. I reviewed the documentation, medical decision making, and treatment plan as noted by the mid-level provider above. I agree with the findings and plan of care. DANNY KATHLEEN MD, VALERIE L WIRE INSULATOR Jun 28, 2024 12:16 DANNY KATHLEEN MD Jun 28, 2024 13:20
--- NOTE | 2024-06-28 13:05 | NUR ---
CARDIOLOGY CONSULT [employer]LIN [employer]ON[employer]GRAM[employer] AT [employer]EDSIDE
--- NOTE | 2024-06-28 14:42 | HMCIMG ---
US VENOUS DOPPLER BILATERAL HISTORY: DVT COMPARISON: None TECHNIQUE: Bilateral lower extremity venous Doppler ultrasound study was performed. FINDINGS: The common femoral, femoral, popliteal, and posterior tibial veins are visualized. Normal flow with augmentation and compressibilities are demonstrated. The greater saphenous veins are also seen and grossly patent. IMPRESSION: 1. No evidence of deep venous thrombosis is seen.
--- NOTE | 2024-06-28 14:42 | HMCIMG ---
US ARTERIAL UNILA LOW EXT DUPL HISTORY: Pain COMPARISON: None TECHNIQUE: Right lower extremity arterial Doppler ultrasound study was performed. FINDINGS: Normal triphasic arterial waveforms are noted in the common femoral, deep femoral, superficial femoral, popliteal, posterior tibial and dorsalis pedal arteries. On the right, the peak systolic velocity of the common femoral artery is 71 cm/s, the proximal femoral artery is 52 cm/s, the mid femoral artery is 72 cm/s, the distal femoral artery is 52 cm/s, the proximal popliteal artery is 38 cm/s, the distal popliteal artery is 45 cm/s, the anterior tibial artery is 33 cm/s, the posterior tibial artery artery is 31 cm/s,and the dorsalis pedal artery is 35 cm/s. IMPRESSION: 1. Atherosclerotic disease. 2. Otherwise normal triphasic arterial waveforms noted of the lower extremity artery system.
[2024-06-28 15:38] LABS: CREATININE 1.4 mg/dL (0.5-1.3); MAGNESIUM 2.2 mg/dL (1.80-2.40)
[2024-06-28] MEDS: furoSEMIDE 40MG VIAL IV SCH (15:51)
[2024-06-28] MEDS: simVASTatin 20 MG TABLET PO SCH (21:47)
[2024-06-28] MEDS: SACUBITRIL/VALSARTAN 1 EACH TABLET PO SCH (21:48)
[2024-06-28] MEDS: carVEDIlol 6.25 MG TABLET PO SCH (21:48)
[2024-06-28] MEDS: guaiFENesin-DM 200/20MG 10ML PO PRN (21:49)
[2024-06-28] MEDS: FAMOTIDINE 20MG VIAL IV SCH (21:50)
[2024-06-29 07:40] LABS: BASOPHILS # (AUTO) 0.04 K/uL (0.00-0.20); BASOPHILS % (AUTO) 0.5 % (0.0-5.0); EOSINOPHILS # (AUTO) 0.13 K/uL (0.00-0.70); EOSINOPHILS % (AUTO) 1.5 % (0.0-8.0); HEMATOCRIT 38.9 % (42-54); IMMATURE GRANULOCYTE ABSOLUTE 0.04 K/uL (0-1); LYMPHOCYTES # (AUTO) 2.3 K/uL (1.0-4.8); LYMPHOCYTES % (AUTO) 26.4 % (21.0-51.0); MEAN CORPUSCULAR HEMOGLOBIN 30.6 pg (27.0-33.0); MEAN CORPUSCULAR HGB CONC 32.6 g/dL (32.0-36.0); MEAN CORPUSCULAR VOLUME 93.7 fL (79-99); MONOCYTES # (AUTO) 0.8 K/uL (0.1-1.0); MONOCYTES % (AUTO) 9.5 % (3.0-13.0); NEUTROPHILS # (AUTO) 5.3 K/uL (1.8-7.7); NEUTROPHILS % (AUTO) 61.6 % (40.0-77.0); PLATELET COUNT (AUTO) 151 K/uL (130-400); RED BLOOD CELL COUNT(AUTO) 4.15 MIL/uL (4.50-6.20); RED CELL DISTRIBUTION WIDTH 14.1 % (11.0-15.5); WHITE BLOOD COUNT (AUTO) 8.6 K/uL (4.8-10.8)
[2024-06-29 07:52] LABS: CREATININE 1.3 mg/dL (0.5-1.3); POTASSIUM 3.8 mmol/L (3.5-5.1)
[2024-06-29] MEDS: ENOXAPARIN SODIUM 30 MG/0.3 ML SQ SCH (09:30)
[2024-06-29] MEDS: SPIRONOLACTONE 25 MG TAB PO SCH (09:31)
[2024-06-29] MEDS: EMPAGLIFLOZIN 10MG TABLET PO SCH (09:32)
--- NOTE | 2024-06-29 09:49 | PN ---
[facility] CARDIOLOGY PROGRESS NOTE Date Patient Seen: Jun 29, 2024 Time of Visit: 09:25 Interval History: This is a 78-year-old Latin-Maldivian male with a past medical history of hypertension, hyperlipidemia, type 2 diabetes mellitus, abnormal treadmill Cardi olite stress test on 04/05/2023 which demonstrated a fixed inferior and septal defect and a gated EF of 49% with associated mild inferobasal hypokinesis, new onset CHF with recent admission to [facility] on 05/18/24, and 2D Echo on 05/19/2024 with an EF of <20%, moderate mitral valve regurgitation, and a global pattern of hypokinesis with paradoxic septal motion. The patient underwent a right and left heart catheterization on 06/27/2024 demonstrating findings of nonischemic cardiomyopathy with a LVEF of <20%, low ca rdiac output state with cardiac index of 1.8 liters/min/m, 2-3+ mitral regurgitation with large V-waves to 28mmHg, minor nonobstructive coronary artery disease with 20% mid and distal LAD stenoses, 20% mid left circumflex stenosis, and 20% mid RCA stenosis with otherwise normal coronaries. Pulmonary capillary wedge pressure of 20mmHg consistent with adequate diuresis. Plans were to continue guideline directed medical therapy and he was discharged home postprocedure. Later in the evening approximately 11:00 p.m., he began experiencing nocturnal anxiety, orthopnea, wheezing and a productive cough. He also complained of some discomfort to the right anterior aspect of his foot radiating into the right lateral aspect of his calf anteriorly. He was concerned and called his daughter early in the morning prompting ER evaluation. He denied any associated chest pain, dizziness, diaphoresis, nausea or vomiting. In the emergency department, his BNP was 2360 compared to a BNP of 2070 on 06/23/2024. His chest x-ray demonstrated cardiomegaly and only mild pulmonary vascular congestion. Bilateral lower extremity venous Doppler studies were negative for DVT and a right lower extremity arterial ultrasound was negative for any significant arterial disease. This morning, he has been up ambulating in the emergency department, offers no complaints of shortness of breath, orthopnea or PND. He did admit to not taking his torsemide the day prior to his procedure and no torsemide the day of the procedure. Physical Examination: GENERAL: No acute distress. HEAD: Normal with no signs of head trauma. EYES: PERRLA, EOMI, conjunctiva and sclera normal. NECK: Supple without JVD. There is no tenderness, lymphadenopathy, or masses. No thyromegaly. Normal carotid upstrokes without bruits. LUNGS: Trace rales at the left base. HEART: Normal rate and rhythm. Normal S1 and S2 there is a 1/6 holosystolic murmur at the apex. VASC: Peripheral pulses +2 bilaterally. EXT: No clubbing, cyanosis or edema. The right groin is free of any bruising or hematoma. NEURO: Awake, alert, and oriented x3. No focal neurological deficits noted. Laboratory: Hematology Labs: Test 06/29/24 06:56 Range/Units White Blood Count 8.6 4.8-10.8 K/uL Red Blood Count 4.15 L 4.50-6.20 MIL/uL Hemoglobin 12.7 L 14.0-18.0 g/dL Hematocrit 38.9 L 42-54 % Mean Corpuscular Volume 93.7 79-99 fL Mean Corpuscular Hemoglobin 30.6 27.0-33.0 pg Mean Corpuscular Hemoglobin Concent 32.6 32.0-36.0 g/dL Red Cell Distribution Width 14.1 11.0-15.5 % Platelet Count 151 130-400 K/uL Mean Platelet Volume 11.0 H 7.5-10.5 fL Immature Granulocyte % (Auto) 0.5 0-1 % Neutrophils (%) (Auto) 61.6 40.0-77.0 % Lymphocytes (%) (Auto) 26.4 21.0-51.0 % Monocytes (%) (Auto) 9.5 3.0-13.0 % Eosinophils (%) (Auto) 1.5 0.0-8.0 % Basophils (%) (Auto) 0.5 0.0-5.0 % Neutrophils # (Auto) 5.3 1.8-7.7 K/uL Lymphocytes # (Auto) 2.3 1.0-4.8 K/uL Monocytes # (Auto) 0.8 0.1-1.0 K/uL Eosinophils # (Auto) 0.13 0.00-0.70 K/uL Basophils # (Auto) 0.04 0.00-0.20 K/uL Absolute Immature Granulocyte (auto 0.04 0-1 K/uL Nucleated Red Blood Cells 0.0 0.0-0.19 % Chemistry Labs: Test 06/29/24 08:53 06/29/24 06:56 06/28/24 15:15 06/28/24 08:34 Range/Units Whole Blood Glucose 102 70-110 MG/DL Sodium Level 144 136-145 mmol/L Potassium Level 3.8 3.5-5.1 mmol/L Chloride Level 106 101-111 mmol/L Carbon Dioxide Level 33 H 21-32 mmol/L Blood Urea Nitrogen 26 H 7-18 mg/dL Creatinine 1.3 0.5-1.3 mg/dL Glomerular Filtration Rate Calc 57 >90 mL/min Random Glucose 77 # 70-105 mg/dL Total Calcium 7.9 L 8.5-10.1 mg/dL Magnesium Level 2.20 1.80-2.40 mg/dL Hemoglobin A1c 8.2 H 4.0-6.0 % Estimated Average Glucose (eAG) 189 H 70-126 mg/dL Troponin I High Sensitivity 48 4-75 ng/L C-Reactive Protein, Quantitative 56.20 H 0.5-3.0 mg/L B-Type Natriuretic Peptide 2360 H 0-100 pg/mL Procalcitonin < 0.05 L 0.05-0.5 ng/mL Thyroid Stimulating Hormone (TSH) 2.66 0.36-3.74 uIU/mL Diagnostics / Radiology: Bilateral lower extremity venous ultrasound 06/28/2024: US VENOUS DOPPLER BILATERAL: HISTORY: DVT COMPARISON: None TECHNIQUE: Bilateral lower extremity venous Doppler ultrasound study was performed. FINDINGS: The common femoral, femoral, popliteal, and posterior tibial veins are visualized. Normal flow with augmentation and compressibilities are demonstrated. The greater saphenous veins are also seen and grossly patent. IMPRESSION: 1. No evidence of deep venous thrombosis is seen. Right lower extremity arterial Doppler study 06/28/2024: US ARTERIAL UNILA LOW EXT DUPL: FINDINGS: Normal triphasic arterial waveforms are noted in the common femoral, deep femoral, superficial femoral, popliteal, posterior tibial and dorsalis pedal arteries. On the right, the peak systolic velocity of the common femoral artery is 71 cm/s, the proximal femoral artery is 52 cm/s, the mid femoral artery is 72 cm/s, the distal femoral artery is 52 cm/s, the proximal popliteal artery is 38 cm/s, the distal popliteal artery is 45 cm/s, the anterior tibial artery is 33 cm/s, the posterior tibial artery artery is 31 cm/s,and the dorsalis pedal artery is 35 cm/s. IMPRESSION: 1. Atherosclerotic disease. 2. Otherwise normal trip Impression and Plan: Acute on chronic systolic congestive heart failure: Low cardiac output state with cardiac index of 1.8 liters/min/m New onset CHF with recent admission to [facility] [place] on 05/18/24: -likely triggered by holding torsemide 48 hours (day before and day of right and left heart catheterization: -he has responded to IV Lasix diuresis in the ER and he has been up ambulating in the ER -give potassium 20 mEq p.o. x2 today -proceed with another dose of Lasix IV today and transitioned to his home torsemide 20 mg p.o. daily on discharge -continue spironolactone 25 mg p.o. daily Continue Entresto 24/26 mg half a tablet p.o. b.i.d. Continue Jardiance 10 mg p.o. daily Continue carvedilol 6.25 mg p.o. b.i.d. Arrange outpatient follow-up at [facility] in 2-3 weeks for reassessment Nonischemic cardiomyopathy with an LVEF of less than 20% by left heart catheterization 06/27/2024: -question/concern for a Viral cardiomyopathy -continue with guideline directed medical therapy and reassess LVEF in 90 days -if LVEF is not improved, we will refer to Dr. Arturo Scott, EP community health consultant to consider AICD placement 2 to 3+ MR with normal capillary wedge pressure of 20 mmHg by right and left heart catheterization 06/27/2024: -Continue uninterrupted torsemide 20 mg p.o. daily Comorbidities: Hypertension Hyperlipidemia Type 2 diabetes mellitus Abnormal treadmill Cardiolite stress test on 04/05/2023 which demonstrated a fixed inferior and septal defect and a gated EF of 49% with associated mild inferobasal hypokinesis Right and left heart catheterization on 06/27/2024 with impression findings of nonischemic cardiomyopathy with a LVEF of <20%, low cardiac output state with cardiac index of 1.8 liters/min/m, 2-3+ mitral regurgitation with large V-waves to 28mmHg, minor nonobstructive coronary artery disease with 20% mid and distal LAD stenoses, 20% mid left circumflex stenosis, and 20% mid RCA stenosis with otherwise normal coronaries. Pulmonary capillary wedge pressure of 20mmHg consistent with adequate diuresis. With plan to continue guideline directed medical therapy. PHYSICIAN ATTESTATION OF PHYSICIAN CREDIT CHECKER DOCUMENTATION: I attest that reviwed and discussed the alexander portions of the service with the Physician Machine Staker and made modifications to the Physician Machine Staker's findings and plans of care as documented above SOTERO RAMOS Jun 29, 2024 09:49 LE WHEELER MD Jun 29, 2024 10:06
--- NOTE | 2024-06-29 10:12 | NUR ---
DCP: PT REFUSED SW attempted to explain to pt reason for questions and information needed. Pt adamantly refused to provided. Stated he did not want to be bothered at home for possible "maid services or anything else". Pt asked Sw to leave him alone. Addendum: 06/29/24 at 1014 by AIXA CABALLERO SS Amended: Links added.
--- NOTE | 2024-06-29 10:36 | DS ---
Discharge Summary Hospital Course Summary: This is a 78-year-old male with past medical history of hypertension, diabetes mellitus type 2, hyperlipidemia, history of severe heart failure with EF of less than 20%, moderate mitral regurgitation who presented to the hospital secondary to shortness of breath. The patient underwent a right and left heart catheterization on 06/27/2024 demonstrating findings of nonischemic cardiomyopathy with a LVEF of <20%, low cardiac output state with cardiac index of 1.8 liters/min/m, 2-3+ mitral regurgitation with large V-waves to 28mmHg, minor nonobstructive coronary artery disease with 20% mid and distal LAD stenoses, 20% mid left circumflex stenosis, and 20% mid RCA stenosis with otherwise normal coronaries. Pulmonary capillary wedge pressure of 20mmHg consistent with adequate diuresis. Plans were to continue guideline directed medical therapy and he was discharged home postprocedure. [facility] cardi[facility], later in that evening approximately 11:00 p.m., he began experiencing nocturnal anxiety, orthopnea, wheezing and a productive cough. He also complained of some discomfort to the right anterior aspect of his foot radiating into the right lateral aspect of his calf anteriorly. He was concerned and called his daughter early in the morning prompting ER evaluation. He was admitted for further evaluation. Today, he denied any associated chest pain, dizziness, diaphoresis, nausea or vomiting. In the emergency department, his BNP was 2360 compared to a BNP of 2070 on 06/23/2024. His chest x-ray demonstrated cardiomegaly and only mild pulmonary vascular congestion. Bilateral lower extremity venous Doppler studies were negative for DVT and a right lower extremity arterial ultrasound was negative for any significant arterial disease. This morning, he has been up ambulating in the emergency department, offers no complaints of shortness of breath, orthopnea or PND. As per cardio, he did admit to not taking his torsemide the day prior to his procedure and no torsemide the day of the procedure. Patient is doing much better though his blood pressure is fluctuating systolic in the high 90s. Cardiology cleared the patient for discharge with condition to give the IV Lasix today can resume the torsemide home dose. We will continue to monitor patient and clarify with cardio if okay to give Lasix with his current blood pressure. Classroom Technology Technician(s): Dr. Sherif Dietz- instructor adjunct pharmacy technician Assessment/Plan: Discharge Diagnoses: Acute on chronic systolic congestive heart failure: Low cardiac output state with cardiac index of 1.8 liters/min/m New onset CHF with recent admission to [facility] on 05/18/24: -likely triggered by holding torsemide 48 hours (day before and day of right and left heart catheterization: -he has responded to IV Lasix diuresis in the ER and he has been up ambulating in the ER -give potassium 20 mEq p.o. x2 today -proceed with another dose of Lasix IV today and transitioned to his home torsemide 20 mg p.o. daily on discharge -continue spironolactone 25 mg p.o. daily -Continue Entresto 24/26 mg half a tablet p.o. b.i.d. -Continue Jardiance 10 mg p.o. daily -Continue carvedilol 6.25 mg p.o. b.i.d. Nonischemic cardiomyopathy with an LVEF of less than 20% by left heart catheterization 06/27/2024: -question/concern for a Viral cardiomyopathy -continue with guideline directed medical therapy and reassess LVEF in 90 days -if LVEF is not improved, we will refer to Dr. Arturo Scott, EP sap business intelligence consultant to consider AICD placement 2 to 3+ MR with normal capillary wedge pressure of 20 mmHg by right and left heart catheterization 06/27/2024: -Continue uninterrupted torsemide 20 mg p.o. daily Admitting diagnoses: Acute on chronic heart failure with systolic and diastolic dysfunction with EF of less than 20% nonischemic cardiomyopathy Right lower extremity pain POA Acute kidney injury POA prerenal versus cardiorenal Hypertension Hyperlipidemia Diabetes mellitus type 2 PLAN: Patient will be discharged home today with instructions to follow up with PCP in 2-3 days Follow-up with Dr. Sherif Dietz in 2-3 weeks Discharge Instructions: Patient will be discharged home today with instructions to follow up with PCP in 2-3 days Follow-up with Dr. Sherif Dietz in 2-3 weeks Home Medications: Active Scripts Sacubitril/Valsartan (Entresto 24 mg-26 mg Tablet) 24 Mg-26 Mg Tablet, 0.5 TAB PO BID for 30 Days, #60 TAB 0 Refills Hold dose if Systolic blood pressure less than 90 Prov:SOTERO RAMOS MEDICAL RECEPTIONIST BILLER 05/26/24 Spironolactone (Spironolactone) 25 Mg Tablet, 1 TAB PO DAILY for 30 Days, #30 TAB 0 Refills Prov:SHERIF DIETZ MD 05/25/24 Empagliflozin (Jardiance) 10 Mg Tablet, 1 TAB PO DAILY for 30 Days, #30 TAB 0 Refills Prov:SHERIF DIETZ MD 05/25/24 Torsemide (Torsemide) 20 Mg Tablet, 1 TAB PO DAILY for 30 Days, #30 TAB 0 Refills Prov:SHERIF DIETZ MD 05/25/24 Reported Medications Carvedilol (Carvedilol) 6.25 Mg Tablet, 6.25 MG PO BID, TAB 06/23/24 Insulin Glargine,Hum.rec.anlog (Lantus Solostar) 100 Unit/Ml (3 Ml) Insuln.pen, 45 UNIT SQ HS for 30 Days, #15 ML 0 Refills 05/18/24 Insulin Lispro (Humalog) 100 Unit/Ml Cartridge, 15 UNITS SQ ACHS, CARTRIDGE 05/18/24 Metformin HCl (Metformin HCl) 850 Mg Tablet, 1 TAB PO BID for 30 Days, #60 TAB 0 Refills 05/18/24 Simvastatin (Simvastatin) 20 Mg Tablet, 20 MG PO HS, TAB 05/18/24 Discontinued Scripts Aspirin (Aspirin) 81 Mg Tab.chew, 1 TAB PO DAILY for 30 Days, #90 TAB 0 Refills Prov:SOTERO RAMOS MEDICAL RECEPTIONIST BILLER 05/26/24 Amoxicillin/Potassium Clav (Amox Tr-K Clv 875-125 mg Tab) 875 Mg-125 Mg Tablet, 1 TAB PO BID for 10 Days, #20 TAB 0 Refills Prov:NEYDA CASTILLO MOLD COOLER 05/26/24 Carvedilol (Coreg) 3.125 Mg Tablet, 3.125 MG PO BID, #30 TAB Prov:SHERIF DIETZ MD 05/25/24 Time spent arranging discharge: 31-60 minutes ATTESTATION BY PHYSICIAN I have seen and examined the patient. I reviewed the documentation, medical decision making, and treatment plan as noted by the mid-level provider above. I agree with the findings and plan of care. GRICEL MORRISON MD, [facility] Jun 29, 2024 10:36
[2024-06-29] MEDS: PoTASSium chloRIDE 20MEQ ER 20 MEQ ERTAB PO ONE ×2 (12:57→15:25)
--- NOTE | 2024-06-29 16:00 | NUR ---
PT CLEANED OF INCONTINENCE, LINEN CHANGED, REPOSITIONED, PUREWICK REPLACED, PT TOLORATED WELL, FAMILY AT BEDSIDE
--- NOTE | 2024-06-29 18:04 | NUR ---
FIRST ATTEMPT TO CALL [facility] NO ANSWER, CHARGE NURSE MADE AWARE
--- NOTE | 2024-06-29 18:15 | NUR ---
2ND ATTEMPT TO CALL [facility] ILIANA CARNEY
--- NOTE | 2024-06-29 18:36 | NUR ---
3RD ATTEMPT TO CALL [facility]
--- NOTE | 2024-06-29 19:48 | NUR ---
DISCHARGE ORDERS GIVEN. PATIENT BEING DISCHARGED HOME
[2024-06-29 19:54] VITALS: BP 112/62; PULSE 82; RESP 18; TEMP 98.1; O2SAT 100
--- NOTE | 2024-06-29 19:55 | NUR ---
PATIENT DISCHARGED WITH SON
== END 2024-06-29 19:56 | disposition home or self-care (01) ==
LOC: EDH 08:02 → EDHIP 09:45 → INTOOBSV 09:45 → EDHIP 06-29 19:56
PROVIDERS: ADMIT Internal Medicine; ATTEND Internal Medicine
DX: I11.0 Hypertensive heart disease with heart failure (principal); Z20.822 Contact with and (suspected) exposure to COVID-19; I50.43 Acute on chronic combined systolic (congestive) and diastolic (congestive) heart failure; M79.604 Pain in right leg; N17.9 Acute kidney failure, unspecified; E78.5 Hyperlipidemia, unspecified; E11.9 Type 2 diabetes mellitus without complications; R06.2 Wheezing; I25.10 Atherosclerotic heart disease of native coronary artery without angina pectoris; F41.9 Anxiety disorder, unspecified; I34.0 Nonrheumatic mitral (valve) insufficiency; I42.8 Other cardiomyopathies; Z79.84 Long term (current) use of oral hypoglycemic drugs; Z79.899 Other long term (current) drug therapy; Z87.891 Personal history of nicotine dependence
CPT/HCPCS: 96376 ×2; 99285; 83036; 84443; 82570; 83735; 84484; 80048 ×3; 84300; 83880; 85025 ×2; 87071; 87086; 87186; 87205; 87804 ×2; 82948 ×7; 86140; 81001; 36415 ×2; 87635; 71045; 93970; 93926; 96374; 96375; 93005; 84145; 96372; G0378 ×10; J1940 ×3; J1815 ×2; J1650

== ENCOUNTER → 2024-07-20 | Outpatient (CLI) | payer MEDICARE ==
[~2024-07-20] MED LIST changes: -INSU100C14 SQ; -INSU3INS3 SQ; -METF-445 PO; -SIMV-43 PO
[2024-07-20 12:32] LABS: BASOPHILS # (AUTO) 0.05 K/uL (0.00-0.20); BASOPHILS % (AUTO) 0.5 % (0.0-5.0); EOSINOPHILS # (AUTO) 0.11 K/uL (0.00-0.70); EOSINOPHILS % (AUTO) 1.2 % (0.0-8.0); HEMATOCRIT 42.6 % (42-54); IMMATURE GRANULOCYTE ABSOLUTE 0.03 K/uL (0-1); LYMPHOCYTES % (AUTO) 32.5 % (21.0-51.0); MEAN CORPUSCULAR HEMOGLOBIN 30.1 pg (27.0-33.0); MEAN CORPUSCULAR HGB CONC 32.2 g/dL (32.0-36.0); MEAN CORPUSCULAR VOLUME 93.6 fL (79-99); MONOCYTES # (AUTO) 0.7 K/uL (0.1-1.0); MONOCYTES % (AUTO) 7.2 % (3.0-13.0); NEUTROPHILS # (AUTO) 5.3 K/uL (1.8-7.7); NEUTROPHILS % (AUTO) 58.3 % (40.0-77.0); PLATELET COUNT (AUTO) 214 K/uL (130-400); RED BLOOD CELL COUNT(AUTO) 4.55 MIL/uL (4.50-6.20); RED CELL DISTRIBUTION WIDTH 14.2 % (11.0-15.5); WHITE BLOOD COUNT (AUTO) 9.1 K/uL (4.8-10.8)
[2024-07-20 12:44] LABS: POTASSIUM 4.6 mmol/L (3.5-5.1)
[2024-07-20 13:02] LABS: B-TYPE NATRIURETIC PEPTIDE 1360 pg/mL (0-100)
== END | disposition home or self-care (01) ==
LOC: LAB 11:30
PROVIDERS: ATTEND Internal Medicine Cardiovascular Disease
DX: I25.10 Atherosclerotic heart disease of native coronary artery without angina pectoris (principal)
CPT/HCPCS: 36415; 80048; 83880; 85025

== ENCOUNTER 2024-08-13 14:14 | Emergency (ER) | payer MEDICARE ==
[~2024-08-13] VITALS: Ht 177.8 cm; Wt 83.9 kg
[2024-08-13 15:23] LABS: SARS-CoV-2, RNA, NAAT NEGATIVE SARS CoV-2 (NEGATIVE)
[2024-08-13 15:26] LABS: INFLUENZA TYPE A Negative For Type A (NEGATIVE); INFLUENZA TYPE B Negative For Type B (NEGATIVE)
--- NOTE | 2024-08-13 15:28 | HMCIMG ---
CHEST 1VW HISTORY: Shortness of breath COMPARISON: 06/28/2024 FINDINGS: A frontal projection of the chest was obtained. Prominent interstitial markings are seen with possible superimposed infiltrates. The heart is normal in size. Degenerative changes are seen. No evidence of aortic calcification is seen. IMPRESSION: 1. Prominent interstitial markings are seen with possible superimposed infiltrates.
[2024-08-13 16:01] LABS: BASOPHILS # (AUTO) 0.04 K/uL (0.00-0.20); BASOPHILS % (AUTO) 0.5 % (0.0-5.0); EOSINOPHILS # (AUTO) 0.09 K/uL (0.00-0.70); EOSINOPHILS % (AUTO) 1.1 % (0.0-8.0); HEMATOCRIT 43.1 % (42-54); IMMATURE GRANULOCYTE ABSOLUTE 0.01 K/uL (0-1); LYMPHOCYTES # (AUTO) 2.3 K/uL (1.0-4.8); LYMPHOCYTES % (AUTO) 27.3 % (21.0-51.0); MEAN CORPUSCULAR HEMOGLOBIN 30.2 pg (27.0-33.0); MEAN CORPUSCULAR HGB CONC 32.9 g/dL (32.0-36.0); MEAN CORPUSCULAR VOLUME 91.7 fL (79-99); MONOCYTES # (AUTO) 0.6 K/uL (0.1-1.0); MONOCYTES % (AUTO) 7.2 % (3.0-13.0); NEUTROPHILS # (AUTO) 5.4 K/uL (1.8-7.7); NEUTROPHILS % (AUTO) 63.8 % (40.0-77.0); PLATELET COUNT (AUTO) 197 K/uL (130-400); RED CELL DISTRIBUTION WIDTH 15.5 % (11.0-15.5); WHITE BLOOD COUNT (AUTO) 8.5 K/uL (4.8-10.8)
[2024-08-13 16:06] LABS: CREATININE 1.3 mg/dL (0.5-1.3); POTASSIUM 4.6 mmol/L (3.5-5.1)
[2024-08-13 16:08] LABS: INR 0.96 (0.85-1.15); PROTHROMBIN TIME 10.8 SEC (9.6-11.6)
[2024-08-13 16:10] LABS: PARTIAL THROMBOPLASTIN TIME 25.2 SEC (26.3-35.5)
[2024-08-13 16:15] LABS: MAGNESIUM 2.1 mg/dL (1.80-2.40)
--- NOTE | 2024-08-13 16:15 | EKG ---
[facility] Test Date: 2024-08-13 Test Time: 14:55:21 Pat Name: KARIN LEE Department: ED Room: Gender: M Lead Relay Tester: [id number] : [id number] Requested By: JESSIE DONNELLY Order Number: [id number] Reading MD: Daniel ePte Measurements Intervals [place] Rate: 78 P: 62 FL: 198 QRS: -19 QRSD: 153 T: -9 QT: 451 QTc: 515 Interpretive Statements Sinus rhythm Ventricular trigeminy IVCD, consider LBBB Compared to ECG 06/28/2024 08:08:04 Ventricular premature complex(es) now present Electronically Signed On 08-14-2024 18:21:22 TECHNICAL LEAD by Daniel Pete Please click the below link to view image of tracing.
[2024-08-13 16:23] LABS: B-TYPE NATRIURETIC PEPTIDE 648 pg/mL (0-100)
--- NOTE | 2024-08-13 16:30 | ERN ---
General Chief Complaint: Congestion Stated Complaint: SOB, DIZZY, BLOOD IN PHLEM/SALIVA Time Seen by MD: 14:16 Source: patient History of Present Illness Initial Comments Patient is a 79-year-old male coming in to be evaluated for cough and congestion. Patient states that he has been having same issues for seven weeks. He states he has been hospitalized on several occasions. She was told that he was congestive heart failure. No fever or chills. Allergies: Coded Allergies: No Known Allergies (Verified Allergy, Unknown, 06/16/18) Home Meds Active Scripts Sacubitril/Valsartan (Entresto 24 mg-26 mg Tablet) 24 Mg-26 Mg Tablet, 0.5 TAB PO BID for 30 Days, #60 TAB 0 Refills Hold dose if Systolic blood pressure less than 90 Prov:SOTERO RAMOS [employer] 05/26/24 Spironolactone (Spironolactone) 25 Mg Tablet, 1 TAB PO DAILY for 30 Days, #30 TAB 0 Refills Prov:LE WHEELER MD 05/25/24 Empagliflozin (Jardiance) 10 Mg Tablet, 1 TAB PO DAILY for 30 Days, #30 TAB 0 Refills Prov:LE WHEELER MD 05/25/24 Torsemide (Torsemide) 20 Mg Tablet, 1 TAB PO DAILY for 30 Days, #30 TAB 0 Refills Prov:LE WHEELER MD 05/25/24 Reported Medications Carvedilol (Carvedilol) 6.25 Mg Tablet, 6.25 MG PO BID, TAB 06/23/24 Past Medical History Past Medical History: CAD, CHF, Diabetes-Type II, High Cholesterol, Hypertension Past Surgical History: Other ROS Dictation CONSTITUTIONAL: No chills, no fever, no weakness, no diaphoresis, no malaise. HEAD/FACE: No signs of trauma. EENT: No eye pain, no blurred vision, no tearing, no double vision, no ear pain, no ear discharge, no nose pain, no nasal congestion, no throat pain, no throat swelling, no mouth pain. RESPIRATORY: No cough, no orthopnea, no SOB, no stridor, no wheezing. CARDIOVASCULAR: No chest pain, no edema, no palpitations, no syncope. GASTROINTESTINAL/ABDOMINAL: No abdominal pain, no constipation, no diarrhea, no nausea, no vomiting. GENITOURINARY: No abnormal discharge, no dysuria, no frequent urination, no hematuria. No complaints of pain in the genitals. MUSCULOSKELETAL: No back pain, no gout, no joint pain, no joint swelling, no muscle pain, no muscle stiffness, no neck pain. INTEGUMENTARY: No change in color, no change in hair/nails, no dryness, no lesion, no lumps, no rash. NEUROLOGICAL/PSYCH: No anxiety, not depressed, no emotional problem, no headache, no numbness, no pre-existing deficit, no history of seizures, no tremors, no weakness. HEMATOLOGIC/LYMPHATIC: Not anemic, no history of blood clots, no apparent bleeding, no bruising, glands not swollen. All Systems Negative, Except as Noted. Physical Exam Physical Exam Dictation VITAL SIGNS: Reviewed. GENERAL APPEARANCE: Alert, oriented x3, no acute distress, obese. HEAD AND FACE: Non-traumatic. EYES: PERRL, pink conjunctivas, eyelid no trauma, anterior chamber clear. EARS: Pinnas intact and no signs of trauma or erythema. Ear canals clear and no discharge. TMs no erythema. NOSE: No discharge, no bleeding. OROPHARYNX: Mouth normal, teeth no caries, tongue pink. Pharynx clear, no erythema. Tonsils no exudates, no abscesses noted. Mucous membrane moist. NECK: Supple, non-tender, no thyromegaly, no masses, no JVD, no bruits. BREAST: Deferred. CHEST: No tenderness, no crepitus, no paradoxical movement, no retractions. LUNGS: Clear, well-ventilated, symmetric, no rales, no wheezing, no rhonchi, no stridor, good breath sounds bilaterally. HEART: Regular rate, regular rhythm, no murmur, no gallops. VASCULAR: No peripheral edema. ABDOMEN: Soft, positive bowel sounds, nondistended, no guarding, nontender, no rebound, no masses no hepatomegaly, no splenomegaly, no Pittman's sign, no hernias. RECTAL: Deferred. GENITAL: Deferred. NEUROLOGICAL: Normal speech, gross motor function intact, gross sensory function intact. MUSCULOSKELETAL: Neck nontender, full range of motion, back nontender, full range of motion. EXTREMITIES: Nontender, full range of motion. SKIN: Color pink, dry, no turgor, no rash, no lacerations, no abrasions, no contusions. LYMPHATICS: Deferred. Results Laboratory and Microbiology Lab and Micro Result Laboratory Tests Test 08/13/24 14:25 08/13/24 15:49 08/13/24 16:30 Influenza Type A Antigen Negative For Type A Influenza Type B Antigen Negative For Type B SARS-CoV-2, RNA, NAAT NEGATIVE SARS CoV-2 White Blood Count 8.5 K/uL (4.8-10.8) Red Blood Count 4.70 MIL/uL (4.50-6.20) Hemoglobin 14.2 g/dL (14.0-18.0) Hematocrit 43.1 % (42-54) Mean Corpuscular Volume 91.7 fL (79-99) Mean Corpuscular Hemoglobin 30.2 pg (27.0-33.0) Mean Corpuscular Hemoglobin Concent 32.9 g/dL (32.0-36.0) Red Cell Distribution Width 15.5 % (11.0-15.5) Platelet Count 197 K/uL (130-400) Mean Platelet Volume 10.6 fL (7.5-10.5) H Immature Granulocyte % (Auto) 0.1 % (0-1) Neutrophils (%) (Auto) 63.8 % (40.0-77.0) Lymphocytes (%) (Auto) 27.3 % (21.0-51.0) Monocytes (%) (Auto) 7.2 % (3.0-13.0) Eosinophils (%) (Auto) 1.1 % (0.0-8.0) Basophils (%) (Auto) 0.5 % (0.0-5.0) Neutrophils # (Auto) 5.4 K/uL (1.8-7.7) Lymphocytes # (Auto) 2.3 K/uL (1.0-4.8) Monocytes # (Auto) 0.6 K/uL (0.1-1.0) Eosinophils # (Auto) 0.09 K/uL (0.00-0.70) Basophils # (Auto) 0.04 K/uL (0.00-0.20) Absolute Immature Granulocyte (auto 0.01 K/uL (0-1) Nucleated Red Blood Cells 0.0 % (0.0-0.19) Prothrombin Time 10.8 SEC (9.6-11.6) Prothromb Time International Ratio 0.96 (0.85-1.15) Activated Partial Thromboplast Time 25.2 SEC (26.3-35.5) L Sodium Level 136 mmol/L (136-145) Potassium Level 4.6 mmol/L (3.5-5.1) Chloride Level 100 mmol/L (101-111) L Carbon Dioxide Level 30 mmol/L (21-32) Blood Urea Nitrogen 32 mg/dL (7-18) H Creatinine 1.3 mg/dL (0.5-1.3) Glomerular Filtration Rate Calc 57 mL/min (>90) Random Glucose 319 mg/dL (70-105) H Total Calcium 8.2 mg/dL (8.5-10.1) L Magnesium Level 2.10 mg/dL (1.80-2.40) Total Creatine Kinase 133 U/L (21-232) # Troponin I High Sensitivity 17 ng/L (4-75) B-Type Natriuretic Peptide 648 pg/mL (0-100) H Urine Color STRAW (YELLOW) Urine Appearance CLEAR (CLEAR) Urine pH 5.0 (5.0-8.0) Urine Specific [place] 1.019 (1.001-1.031) Urine Protein NEGATIVE mg/dL (NEGATIVE) Urine Glucose (UA) >=1000 mg/dL (NEGATIVE) H Urine Ketones NEGATIVE mg/dL (NEGATIVE) Urine Occult Blood NEGATIVE (NEGATIVE) Urine Nitrate NEGATIVE (NEGATIVE) Urine Bilirubin NEGATIVE mg/dL (NEGATIVE) Urine Urobilinogen 0.2 mg/dL (0.2-1.0) Urine Leukocyte Esterase NEGATIVE Simin/uL Urine RBC 0-1 /HPF (0-1) Urine WBC 0-1 /HPF (0-1) Urine Bacteria None /HPF (None Seen) Labs Reviewed?: Yes EKG/XRAY/US/CT/MRI EKG Comment 08/13/2024 time 2:55 p.m. Ventricular rate 78 Sinus rhythm [place] [address] wave elevation or depression X-RAY Comment [place] [id number] [id number] IMAGING REPORT Signed PATIENT: KARIN LEE MR#: [id number] : 1945 SEX: M AGE: 79 LOCATION: [facility] ORDER 1421 STATUS: REG ER REPORT#: [id number] SERVICE [id number] REASON: sob ORDERING PHYSICIAN: JESSIE DONNELLY MD PROCEDURE: CXR1VW - CHEST 1VW CHEST 1VW HISTORY: Shortness of breath COMPARISON: 06/28/2024 FINDINGS: A frontal projection of the chest was obtained. Prominent interstitial markings are seen with possible superimposed infiltrates. The heart is normal in size. Degenerative changes are seen. No evidence of aortic calcification is seen. IMPRESSION: 1. Prominent interstitial markings are seen with possible superimposed infiltrates. DICTATED BY: PAULINA RUBIO MD DATE: 08/13/241523 ELECTRONICALLY SIGNED BY: PAULINA RUBIO MD DATE: 08/13/241527 [facility] MDM: Differential diagnosis: CHF exacerbation, mitral valve regurg, Patient is a 79-year-old gentleman coming in to be evaluated for cough and congestion. Patient states he has a history of CHF. Upon evaluation previous echocardiogram patient does has a lower ejection fraction in the normal as well as a mitral valve regur. Patient was counseled into water limitations as well as medication adherence. Patient will be discharged in stable condition with a diagnosis of CHF. ED Course Orders Procedure Category Date Status Time Cbc With Differential LAB 08/13/24 Complete 14:19 Prothrombin Time With LAB 08/13/24 Complete INR 14:19 B-Type Natriuretic LAB 08/13/24 Complete Peptide 14:19 Chest 1vw RAD 08/13/24 Resulted 14:19 12 Lead Ekg Tracing- EKG 08/13/24 Complete Technical 14:19 Magnesium LAB 08/13/24 Complete 14:19 Creatine Kinase, Total LAB 08/13/24 Complete 14:19 Troponin I High LAB 08/13/24 Complete Sensitivity 14:19 Urinalysis Profile LAB 08/13/24 Complete 14:19 Partial LAB 08/13/24 Complete Thromboplastin Time 14:19 Basic Metabolic Panel LAB 08/13/24 Complete 14:19 Covid Rna Naat LAB 08/13/24 Complete 14:19 Influenza Type A & B, LAB 08/13/24 Complete Rapid 14:19 Vital Signs Date Time Temp Pulse Resp B/P (MAP) Pulse Ox O2 Delivery O2 Flow Rate FiO2 08/13/24 17:24 98.1 65 16 141/86 94 Room Air* 0 21 08/13/24 14:26 98.1 69 16 149/99 94 Room Air* 0 21 08/13/24 14:25 98.1 69 16 149/99 94 Room Air 0 08/13/24 14:25 98.1 69 16 149/99 94 Room Air* 0 21 DX & DISP Disposition: Discharge Departure Impression: Primary Impression: Mitral valve regurgitation Additional Impression: CHF (congestive heart failure), NYHA class I Condition: Stable Additional Instructions: FOLLOW-UP WITH PRIMARY CARE PROVIDER IN 1 TO 2 DAYS. TAKE MEDICATIONS DIRECTED HERE IN THE EMERGENCY ROOM. OKAY TO CONTINUE HOME MEDICATIONS UNLESS OTHERWISE DISCUSSED DURING YOUR VISIT IN THE EMERGENCY ROOM TODAY. RETURN TO YOUR NEAREST EMERGENCY ROOM IF SYMPTOMS WORSEN OR IF THERE IS NO IMPROVEMENT. CALL 911 IF YOU NEED IMMEDIATE ASSISTANCE. TAKE TYLENOL [id number] NEEDED AND IF NO CONTRAINDICATIONS ARE PRESENT. INCREASE ORAL HYDRATION. A WOUND CULTURE OR URINE CULTURE WAS ORDERED HERE IN THE EMERGENCY ROOM DEPARTMENT PLEASE FOLLOW-UP WITH PRIMARY CARE PROVIDER AND ADVISE THEM TO GET REPEAT PORTS FROM OUR FACILITY. IF YOU HAD ANY DC WRAP/SPLINTS THAT WERE APPLIED HERE, PLEASE DO NOT REMOVE THEM UNTIL YOU SEE YOUR PRIMARY CARE OR SPECIALTY. Referrals: Referrals: JARON BASHIR DO (PCP) Time of Disposition: 17:35 JESSIE DONNELLY MD Aug 13, 2024 16:30
[2024-08-13 16:47] LABS: APPEARANCE,URINE CLEAR (CLEAR); BILIRUBIN,URINE NEGATIVE (NEGATIVE); GLUCOSE, URINE (UA) >=1000 mg/dL (NEGATIVE); KETONES,URINE NEGATIVE (NEGATIVE); LEUKOCYTE ESTERASE ,URINE NEGATIVE Leu/uL (NEGATIVE); NITRATE,URINE NEGATIVE (NEGATIVE); OCCULT BLOOD,URINE NEGATIVE (NEGATIVE); UROBILINOGEN,URINE 0.2 mg/dL (0.2-1.0)
[2024-08-13 16:48] LABS: ADD UA MICROSCOPIC YES; COLOR,URINE STRAW (YELLOW); PROTEIN,URINE NEGATIVE (NEGATIVE)
[2024-08-13 16:49] LABS: MUCUS,URINE RARE LPF (None Seen); RBC,URINE 0-1 /HPF (0-1); WBC,URINE 0-1 /HPF (0-1)
[2024-08-13 17:24] VITALS: BP 141/86; PULSE 65; RESP 16; TEMP 98.1; O2SAT 94
== END 2024-08-13 17:57 | disposition home or self-care (01) ==
LOC: EDH 14:14
DX: I34.0 Nonrheumatic mitral (valve) insufficiency (principal); I11.0 Hypertensive heart disease with heart failure; I50.9 Heart failure, unspecified; E11.9 Type 2 diabetes mellitus without complications; E78.00 Pure hypercholesterolemia, unspecified; I25.10 Atherosclerotic heart disease of native coronary artery without angina pectoris; Z79.84 Long term (current) use of oral hypoglycemic drugs; Z79.899 Other long term (current) drug therapy; Z20.822 Contact with and (suspected) exposure to COVID-19; Z98.890 Other specified postprocedural states
CPT/HCPCS: 36415; 71045; 80048; 81001; 82550; 83735; 83880; 84484; 85025; 85610; 85730; 87635; 87804; 93005; 99285

== ENCOUNTER → 2024-10-12 | Outpatient (CLI) | payer MEDICARE | END | disposition home or self-care (01) | LOC: SHCH 09:33 | PROVIDERS: ATTEND Internal Medicine Cardiovascular Disease | DX: I08.8 Other rheumatic multiple valve diseases (principal); I42.8 Other cardiomyopathies | CPT/HCPCS: 93306 ==